=== PATIENT | female | born 1970 | race Caucasian/White ===

== ENCOUNTER 2020-10-04 11:57 | Outpatient (CLI) | payer OTHER ==
--- NOTE | 2020-10-04 18:48 | RAD ---
TWO VIEWS OF THE LEFT HIP: 10/04/20 COMPARISON: None. HISTORY: Left hip pain. FINDINGS: Two views of the left hip shows no evidence of acute fracture or dislocation. No degenerative changes are seen. There are phleboliths in the pelvis. IMPRESSION: No evidence of acute osseous abnormality. POS: [facility]
--- NOTE | 2020-10-04 18:48 | RAD ---
TWO VIEWS OF THE RIGHT HIP: 10/04/20 HISTORY: Right hip pain. FINDINGS: Two views of the right hip shows no evidence of acute fracture or dislocation. No degenerative change s are seen. No soft tissue swelling is present. Phleboliths are seen in the pelvis. IMPRESSION: Unremarkable exam. POS: [id number]
== END 2020-10-04 11:58 | disposition home or self-care (01) ==
LOC: BICRAD 11:57
PROVIDERS: ATTEND Family Medicine
DX: M25.551 Pain in right hip (principal); M25.552 Pain in left hip

== ENCOUNTER 2021-03-21 12:12 | Outpatient (CLI) | payer OTHER | END 2021-03-21 12:13 | disposition home or self-care (01) | LOC: BICRAD 12:12 | PROVIDERS: ATTEND Family Medicine | DX: M54.5 Low back pain (principal); G89.29 Other chronic pain; M47.816 Spondylosis without myelopathy or radiculopathy, lumbar region; M47.817 Spondylosis without myelopathy or radiculopathy, lumbosacral region | CPT/HCPCS: 72100 ==

== ENCOUNTER 2021-04-11 07:59 | Outpatient (CLI) | payer OTHER ==
[2021-04-11] MEDS ORDERED: Iopamidol-370 76% 500 ML 1 ML ONE (13:52)
== END 2021-04-11 08:00 | disposition home or self-care (01) ==
LOC: BICCT 07:59
PROVIDERS: ATTEND Family Medicine
DX: K76.89 Other specified diseases of liver (principal); R16.0 Hepatomegaly, not elsewhere classified; N28.1 Cyst of kidney, acquired
CPT/HCPCS: 74177; Q9967